=== PATIENT | male | born 1985 | race Caucasian/White ===

== ENCOUNTER 2023-12-06 14:16 | Outpatient (CLI) | payer BC, SELFPAY | END 2023-12-06 14:17 | disposition home or self-care (01) | PROVIDERS: Visit Provider Family Medicine | DX: I10 Essential (primary) hypertension (principal); R68.83 Chills (without fever); R51.9 Headache, unspecified; M54.9 Dorsalgia, unspecified; Z13.6 Encounter for screening for cardiovascular disorders; Z13.29 Encounter for screening for other suspected endocrine disorder | CPT/HCPCS: 80061; 80076; 84439; 84443; 86140 ==

== ENCOUNTER 2023-12-08 11:41 | Emergency (ER) | payer BC, SELFPAY ==
[2023-12-08] VITALS (18 sets, daily range): BP systolic 113–138; BP diastolic 75–87; PULSE 59–93; RESP 16; TEMP 35.7; O2SAT 91–99; BMI 32.5
--- NOTE | 2023-12-08 12:34 | CRLHL7_ITS ---
For Patients: As a result of the Century Cures Act, medical imaging exams and procedure reports are released immediately into your electronic medical record. You may view this report before your referring provider. If you have questions, please contact your health care provider. INDICATION: Headache TECHNIQUE: CT head without contrast. COMPARISON: None. FINDINGS: symmetric. The ventricles, sulci and cisterns are normal. BRAIN: There is a 1.2 x 1.2 centimeter rounded hyperdensity centered in the right thalamus/posterior limb of the internal capsule. EXTRA-AXIAL: Extra-axial spaces are normal. EXTRA-CRANIAL: Multiple soft tissue lesions within the scalp, for example a right suboccipital subcutaneous nodule measuring 1.4 by 1.2 centimeters and at the vertex measuring 1.3 x 1.3 centimeters (). Skull and facial bones are normal. The visualized sinuses and mastoids are clear. Orbits are normal. IMPRESSION: Rounded area of hemorrhage centered in the right thalamus/posterior limb of the internal capsule. Considering rounded appearance and patient age, consider MR to evaluate for underlying lesion. Multiple soft tissue lesions along the scalp and subcutaneous tissues of the visualized neck may represent sebaceous cysts, but are indeterminate considering the above findings. Consider correlation with physical exam. These results were communicated to Block by Sumit on 12/08/23 at 1:22 pm. Please note that all CT scans at this facility use dose modulation, iterative reconstruction, and/or weight-based dosing when appropriate to reduce radiation dose to as low as reasonably achievable. Dictated by Annamarie Arana MD @ 12/08/2023 1:21:26 PM (Electronically Signed)
--- NOTE | 2023-12-08 12:37 | ED.GENADULT ---
HPI - General Adult General Date Seen: 12/08/23 Chief complaint: Headache/Migraine Stated complaint: headaches/nausea Time Seen by Provider: 12/08/23 12:15 Source: patient, RN notes reviewed and old records reviewed Mode of arrival: ambulatory Limitations: no limitations History of Present Illness HPI narrative: Patient is a 30-year-old male who describes himself as generally pretty healthy. For the past 5 days he has been dealing with a headache which is frontal, kind of feels like it is behind his eyes. He has had some nausea, has not had any photophobia or vomiting. He has had trouble for the past 8 weeks or so with on and off upper respiratory symptoms, cough sore throat that kind of thing. Right now he does not have a sore throat. He has been on a couple of rounds of antibiotics and prednisone to deal with those symptoms. The cough seems pretty stable to him. He has not had chest pain or shortness of breath. He was seen in clinic a couple of days ago regarding the headache, had a normal CBC, metabolic panel was largely unremarkable, had a CRP of less than 0.5 and a negative chest x-ray. He was given tramadol which he says helps with the headache but it comes back after the tramadol wears off. He has missed work this week which is very atypical for him his says he has just been fatigued. No significant weight loss, no unusual rashes, no known tick bites. They had run a COVID test at home which was negative but note that the test was , no other COVID testing has been done. No ill contacts. Nothing is significantly worse, but it is also not better and Dr. Caraballo had recommended if it did not improve that they might consider MRI. Related Data Home Medications ?Medication ?Instructions ?Recorded ?Confirmed losartan 100 mg tablet 100 mg PO DAILY 01/05/23 12/08/23 metoprolol succinate 50 mg 50 mg PO DAILY 01/05/23 12/08/23 tablet,extended release 24 hr Previous Rx's ?Medication ?Instructions ?Recorded chlorthalidone 25 mg tablet 25 mg PO QDAY #90 tabs 11/30/23 tramadol 50 mg tablet See Rx Instructions PO .ud pain 12/06/23 #24 tabs tramadol 50 mg tablet 50 mg PO Q6H PRN pain #24 tabs 12/07/23 Allergies Allergy/AdvReac Type Severity Reaction Status Date / Time No Known Drug Allergies Allergy Verified 12/08/23 12:05 Review of Systems Status of ROS: Reports: 10 or more systems reviewed and unremarkable except as noted in History and below [facility] Social History Smoking Status: Never smoker Do you use any of these nicotine containing products: None Second hand tobacco smoke exposure: No How many standard drinks containing alcohol do you have on a typical day: 1 or 2 How often do you have six or more drinks on one occasion: Weekly AUDIT-C Alcohol total score: 3 Non-prescribed substance use: denies use service: No Exam Narrative: Exam Narrative: Vital signs as noted above. In general, an alert, well-appearing patient. Head: Normocephalic, atraumatic. Eyes: Pupils are equal reactive. Extraocular movements are full. Conjunctivae are normal. ENT: Mucous membranes are moist. Throat is normal. Neck: Supple without lymphadenopathy. Heart: Regular rate and rhythm. No murmur or rub. Lungs: Clear bilaterally. No increased work of breathing, crackles or wheezes. Abdomen: Soft and nontender. No organomegaly. Extremities: Well perfused. No edema. No calf tenderness. Pulses intact. Neurologic: Patient is alert and oriented to person and place. Speech is fluent. Face is symmetric. Moves all extremities equally. Affect: Normal. Skin: Warm and dry. Well perfused. Const: Vital Signs, click to edit/add: Vital Signs - 24 hr 12/08/23 12:05 12/08/23 13:10 12/08/23 13:11 Temperature 96.2 F L Pulse Rate 59 L 64 Pulse Rate [Pulse Oximeter] 93 Respiratory Rate 16 16 Blood Pressure 138/87 Blood Pressure [Ri ght Upper Arm] 113/75 Pulse Oximetry 99 95 92 Oxygen Delivery Me thod Room Air 12/08/23 13:12 12/08/23 13:15 12/08/23 13:30 Temperature Pulse Rate 64 65 69 Pulse Rate [Pulse Oximeter] Respiratory Rate Blood Pressure Blood Pressure [Ri ght Upper Arm] Pulse Oximetry 96 93 97 Oxygen Delivery Me thod 12/08/23 13:45 12/08/23 14:00 12/08/23 14:17 Temperature Pulse Rate 73 67 74 Pulse Rate [Pulse Oximeter] Respiratory Rate Blood Pressure Blood Pressure [Ri ght Upper Arm] Pulse Oximetry 91 92 95 Oxygen Delivery Me thod 12/08/23 14:30 12/08/23 14:45 12/08/23 15:00 Temperature Pulse Rate 65 68 67 Pulse Rate [Pulse Oximeter] Respiratory Rate Blood Pressure Blood Pressure [Ri ght Upper Arm] Pulse Oximetry 95 95 93 Oxygen Delivery Me thod 12/08/23 15:15 12/08/23 15:30 12/08/23 15:45 Temperature Pulse Rate 70 70 68 Pulse Rate [Pulse Oximeter] Respiratory Rate Blood Pressure Blood Pressure [Ri ght Upper Arm] Pulse Oximetry 96 95 95 Oxygen Delivery Me thod 12/08/23 16:00 12/08/23 16:15 12/08/23 16:30 Temperature Pulse Rate 69 70 72 Pulse Rate [Pulse Oximeter] Respiratory Rate Blood Pressure Blood Pressure [Ri ght Upper Arm] Pulse Oximetry 97 94 94 Oxygen Delivery Me thod Documenting provider has reviewed patient's vital signs: yes Course Course ED Course: Patient presents with persistent headache for coming up on week without other significant findings. He does not have any meningeal signs, exam is benign, no neurologic findings or complaints. He does not relay any kind of migraine history or significant family history of migraine. I think it is reasonable to treat headache with Zofran, Toradol, Benadryl. Will give him a L of saline. I have reviewed all of his records. I did order CT of the head to screen for obvious or abnormalities there. He was recently treated with a couple courses of antibiotics for possible sinusitis, he is not describing any sinus symptoms at present. We did do a viral swab, this was negative. I reviewed his CT of the head, he had a hyperdense lesion in the right hemisphere, read by Radiology as follows: Patient: SUSSY FOUNTAIN Facility: [facility] Site . Site : 1985 Study: CT-Head WO-12/08/2023 1:06:03 PM Ordering Physician: Nataliia Flores Final Report: INDICATION: Headache TECHNIQUE: CT head without contrast. COMPARISON: None. FINDINGS: MASS EFFECT & VENTRICLES: No shift. The lateral ventricles are grossly symmetric. The ventricles, sulci and cisterns are normal. BRAIN: There is a 1.2 x 1.2 centimeter rounded hyperdensity centered in the right thalamus/posterior limb of the internal capsule. EXTRA-AXIAL: Extra-axial spaces are normal. EXTRA-CRANIAL: Multiple soft tissue lesions within the scalp, for example a right suboccipital subcutaneous nodule measuring 1.4 by 1.2 centimeters and at the vertex measuring 1.3 x 1.3 centimeters (3/56). Skull and facial bones are normal. The visualized sinuses and mastoids are clear. Orbits are normal. IMPRESSION: Rounded area of hemorrhage centered in the right thalamus/posterior limb of the internal capsule. Considering rounded appearance and patient age, consider MR to evaluate for underlying lesion. Multiple soft tissue lesions along the scalp and subcutaneous tissues of the visualized neck may represent sebaceous cysts, but are indeterminate considering the above findings. Consider correlation with physical exam. These results were communicated to Nataliia by Sumit on 12/08/23 at 1:22 pm. Please note that all CT scans at this facility use dose modulation, iterative reconstruction, and/or weight-based dosing when appropriate to reduce radiation dose to as low as reasonably achievable. Dictated by Annamarie Arana MD @ 12/08/2023 1:21:26 PM I did discuss the scalp lesions with him, he says he is always have those. These are likely sebaceous cyst. With regard to lesion in the brain, I recommended to him that we do an MRI. We did have to wait a few hours to get this done due to MRI scheduling. This is read by Radiology as follows:Patient: SUSSY [facility] Facility: [facility] Site . Site : 1985 Study: MRI-Head W/ and W/O Cont 30 CC DOTAREM-12/08/2023 5:58:23 PM Ordering Physician: Nataliia Flores Final Report: INDICATION: Headaches. COMPARISON: CT from earlier today. TECHNIQUE: Multiplanar T1, T2, FLAIR and diffusion-weighted imaging.. Post gadolinium T1 weighted sequences. FINDINGS: Normal brain parenchymal morphology. Popcorn like heterogeneous T2 hyperintense lesion of the right thalamus measures approximately 10 mm in diameter with marginal susceptibility artifact. Findings consistent with a cavernoma. This correlates with the hyperdense lesion as seen on CT. No intracranial hemorrhage. No abnormal ventricular dilatation. Intracranial vascular flow voids are preserved. No mass effect. No midline shift. No restricted diffusion to suggest acute ischemia. Bilateral orbits are unremarkable. Normal appearing sella. Visualized paranasal sinuses and mastoid air cells are unremarkable. IMPRESSION: 1. No acute intracranial abnormality. 2. Normal brain parenchymal morphology. 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 3. No abnormal enhancement or enhancing lesions I discussed his case with Dr. Alexis, on-call for Neurosurgery it [facility]. He feels that his headache is likely unrelated to this cavernoma. This will need neurosurgery follow-up however, and Dr. Alexis [facility] is supposed to reach out to him to get that scheduled. I gave patient and his the phone number in case they do not hear from them. I did discuss with him that this cavernoma is likely an incidental finding, and is not the reason for his headache over the past week. I added on tick-borne diseases as well as an EBV, reviewed with him that these are send outs and will need to be followed up. He is feeling improved at this time, feels the medications here worked well. I do not see any reason for further emergent evaluation at this time. Would recommend following up with Dr. Patrick if not improving over the next couple of days, with Neurosurgery as outlined above. I gave him a note to be off of work today and tomorrow. Vital Signs Vital signs: Initial Vital Signs Temperature 96.2 F L 12/08/23 12:05 Temperature Source Temporal Artery Scan 12/08/23 12:05 Pulse Rate 93 12/08/23 12:05 Pulse Rhythm Regular 12/08/23 12:05 Pulse Strength 3+ Normal 12/08/23 12:05 Respiratory Rate 16 12/08/23 12:05 Blood Pressure 113/75 12/08/23 12:05 Blood Pressure Mean 87 12/08/23 12:05 Blood Pressure Position Sitting 12/08/23 12:05 Pulse Oximetry 99 12/08/23 12:05 Oxygen Delivery Method Room Air 12/08/23 12:05 Vital Signs Temperature 96.2 F L 12/08/23 12:05 Pulse Rate 93 12/08/23 12:05 Respiratory Rate 16 12/08/23 12:05 Blood Pressure 113/75 12/08/23 12:05 Pulse Oximetry 99 12/08/23 12:05 Oxygen Delivery Method Room Air 12/08/23 12:05 Temperature 96.2 F L 12/08/23 12:05 Pulse Rate 72 12/08/23 16:30 Respiratory Rate 16 12/08/23 13:11 Blood Pressure 138/87 12/08/23 13:11 Pulse Oximetry 94 12/08/23 16:30 Oxygen Delivery Method Room Air 12/08/23 12:05 Medications Administered Medications: Discontinued Medications Generic Name Dose Route Start Last Admin Trade Name Freq PRN Reason Stop Dose Admin Diphenhydramine HCl 25 mg 12/08/23 12:33 12/08/23 12:52 Diphenhydramine 50 Mg/Ml Inj IVP 12/08/23 12:34 25 mg ONCE ONE Administration Sodium Chloride 1,000 mls @ 1,000 mls/hr 12/08/23 12:45 12/08/23 13:39 0.9 % Sodium Chloride 1000 Ml IV 12/08/23 13:44 Infused .Q1H GIGI Infusion Ketorolac Tromethamine 15 mg 12/08/23 12:33 12/08/23 12:52 Ketorolac 15 Mg/Ml Inj IVP 12/08/23 12:34 15 mg ONCE ONE Administration Ondansetron HCl 4 mg 12/08/23 12:33 12/08/23 12:53 Ondansetron 2 Mg/Ml Inj IVP 12/08/23 12:34 4 mg ONCE ONE Administration Medical Decision Making Lab Data Labs: Lab Results 12/08/23 Range/Units 12:22 SARS-CoV-2 (PCR) Negative SARS-CoV-2 (Negative) Influenza Type A (PCR) Negative PCR FLU A (Negative) Influenza Type B (PCR) Negative PCR FLU B (Negative) RSV (PCR) Negative PCR RSV (Negative) Discharge Plan Discharge Clinical Impression: Headache, Cerebral cavernoma Patient Disposition: Home, Self-Care Condition: Improved Instructions: Acute Headache (DC) Additional Instructions: You will need neurosurgical follow-up regarding the cavernoma found on MRI today. You should hear from the neurosurgery clinic, but if they do not call you tomorrow, you can call [phone]. I consulted with Dr. Alexis today. I have sent off labs to check for Ebstein Philippe virus (mono) as well as tick-borne illnesses. You can continue to use ibuprofen and/or Tylenol, tramadol if needed for headache. If headache does not improve over the next few days, I would recommend that you see Dr. Patrick again, consider neurology referral at that time. Prescriptions: No Action losartan 100 mg tablet 100 mg PO DAILY metoprolol succinate 50 mg tablet extended release 24 hr 50 mg PO DAILY chlorthalidone 25 mg tablet 25 mg PO QDAY Qty: 90 3RF tramadol 50 mg tablet See Rx Instructions PO .ud Qty: 24 0RF Rx Instructions: 1-2 tabs Q6H prn pain orally UD; tramadol 50 mg tablet 50 mg PO Q6H PRN (Reason: pain) Qty: 24 0RF Follow Up/Referrals: Provider,Not a Local [Primary Care Provider] - Stand Alone Forms: MyHealth Info Instructions
[2023-12-08] MEDS: KETOROLAC 15 MG/ML inj IVP (12:52)
[2023-12-08] MEDS: diphenhydrAMINE 50 MG/ML inj 25 MG IVP (12:52)
[2023-12-08] MEDS: 0.9 % SODIUM CHLORIDE 1000 ml 1,000 ML IV (12:53)
[2023-12-08] MEDS: ONDANSETRON 2 MG/ML inj 4 MG IVP (12:53)
[2023-12-08 13:05] LABS: PCR FLU A Negative PCR FLU A (Negative); PCR FLU B Negative PCR FLU B (Negative); PCR RSV Negative PCR RSV (Negative); SARS PCR* Negative SARS-CoV-2 (Negative)
--- NOTE | 2023-12-08 13:21 | CRLHL7_ITS ---
For Patients: As a result of the Century Cures Act, medical imaging exams and procedure reports are released immediately into your electronic medical record. You may view this report before your referring provider. If you have questions, please contact your health care provider. INDICATION: Headaches. COMPARISON: CT from earlier today. TECHNIQUE: Multiplanar T1, T2, FLAIR and diffusion-weighted imaging.. Post gadolinium T1 weighted sequences. FINDINGS: Normal brain parenchymal morphology. Popcorn like heterogeneous T2 hyperintense lesion of the right thalamus measures approximately 10 mm in diameter with marginal susceptibility artifact. Findings consistent with a cavernoma. This correlates with the hyperdense lesion as seen on CT. No intracranial hemorrhage. No abnormal ventricular dilatation. Intracranial vascular flow voids are preserved. No mass effect. No midline shift. No restricted diffusion to suggest acute ischemia. Bilateral orbits are unremarkable. Normal appearing sella. Visualized paranasal sinuses and mastoid air cells are unremarkable. IMPRESSION: 1. No acute intracranial abnormality. 2. Normal brain parenchymal morphology. 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 3. No abnormal enhancement or enhancing lesions Dictated by Boubacar Newby MD @ 12/08/2023 6:05:28 PM (Electronically Signed)
[2023-12-10 14:10] LABS: EBV Antibody-Early (D)Ag IgG <5.0 U/mL (0.0-10.9)
[2023-12-11 20:30] LABS: Anaplasma phagocyt PCR Not Detected; Babesia microti by PCR Not Detected; Babesia species by PCR Not Detected; Ehrlichia chaffeensis by PCR Not Detected; Ehrlichia ewingii/canis by PCR Not Detected; Ehrlichia muris-like by PCR Not Detected
== END 2023-12-08 19:11 | disposition home or self-care (01) ==
PROVIDERS: Emergency Provider Emergency Medicine
DX: R51.9 Headache, unspecified (principal); D18.02 Hemangioma of intracranial structures
CPT/HCPCS: 36415; 70450; 70553; 86618; 86663; 87468; 87469; 87484; 87631; 87798; 96374; 96375; 99284; A9575; J1200; J1885; J2405; J7030